=== PATIENT | female | born 1970 | race Caucasian/White ===

== ENCOUNTER 2023-05-06 15:00 | Outpatient (OUT) | payer OTHER, SELFPAY ==
--- NOTE | 2023-05-06 15:09 | XR_ITS ---
The [address] [address] Patient Name: AMISH YANEZ MRN: [id number] date: 1970 Sex: F Assigned Patient Location: [facility] Current Patient Location: [facility] Accession/Order Number: [id number] Exam Date: 05/06/2023 15:12 Report Date: 05/07/2023 00:13 At the request of: MYRA ZAMAN Procedure: XR ankle RT min 3V EXAM: XR ankle RT min 3V 05/06/2023 3:12 PM EDT OH001 CLINICAL STATEMENT: M25.571 COMPARISON: No prior studies are available at the time of dictation. TECHNIQUE: AP and lateral views of the right ankle are submitted. FINDINGS: The osseous structures are intact and in anatomic alignment. There is no acute fracture and/or dislocation. Plantar calcaneal spur. The joint spaces are preserved. Soft tissues are unremarkable. Bone mineralization is within normal limits for the patient's age. IMPRESSION: No acute fracture and/or dislocation. Plantar calcaneal spur. Electronically authenticated by: YORDY KASPER Date: 05/07/2023 00:13
== END 2023-05-06 15:01 ==
LOC: RAD 15:04
PROVIDERS: PCP Family Medicine; Visit Provider Family Medicine
DX: M25.571 Pain in right ankle and joints of right foot (principal); M77.31 Calcaneal spur, right foot
CPT/HCPCS: 73610

== ENCOUNTER 2023-06-29 14:57 | Outpatient (OUT) | payer OTHER, SELFPAY ==
--- NOTE | 2023-06-29 15:18 | XR_ITS ---
The [address] [address] Patient Name: AMISH YANEZ MRN: [id number] date: 1970 Sex: F Assigned Patient Location: [facility] Current Patient Location: Accession/Order Number: [id number] Exam Date: 06/29/2023 15:12 Report Date: 06/30/2023 09:56 At the request of: MYRA ZAMAN Procedure: XR nasal bones min 3V EXAM: XR nasal bones min 3V HISTORY: J34.89 acute facial injury one week ago; fell; bruising to right orbit and bridge of nose COMPARISON: None. TECHNIQUE: FINDINGS: Mild rightward deviation of the mid nasal septum. No fracture the nasal bones or orbital rims. XR/XR nasal bones min 3V IMPRESSION: 1. No acute bone abnormality. Electronically authenticated by: NAE HERNANDEZ Date: 06/30/2023 09:56
== END 2023-06-29 14:58 | disposition home or self-care (01) ==
LOC: RAD 14:58
PROVIDERS: PCP Family Medicine; Visit Provider Family Medicine
DX: J34.89 Other specified disorders of nose and nasal sinuses (principal)
CPT/HCPCS: 70160

== ENCOUNTER 2023-08-12 12:36 | Outpatient (OUT) | payer OTHER, SELFPAY ==
--- NOTE | 2023-08-12 12:42 | US_ITS ---
[address] [address] Patient Name: AMISH YANEZ MRN: [id number] date: 1970 Sex: F Assigned Patient Location: [facility] Current Patient Location: Accession/Order Number: [id number] Exam Date: 08/12/2023 12:50 Report Date: 08/12/2023 18:38 At the request of: NON-STAFF PHYSICIAN Procedure: US venous doppler LE RT EXAMINATION: US venous doppler LE RT HISTORY: Right Calf Pain M79.661 COMPARISON: No relevant comparison available. TECHNIQUE: A scale, color and Doppler ultrasound FINDINGS: Region: Right leg Thrombus: Echogenic thrombus identified in a gastrocnemius vein along the entire length of the catheter Flow: Absent flow corresponding to thrombus Compressibility: Absent compressibility corresponding to thrombus Augmentation: Normal proximal augmentation Other: Yaakov Yu notified by the technologist at the time of exam US/US venous doppler LE RT IMPRESSION: Occlusive deep vein thrombus identified in the gastrocnemius vein along its entire length in the calf *Exam performed in accordance with [facility] practice guidelines- Peripheral venous ultrasound, February 09, 2010. Electronically authenticated by: JB OZUNA Date: 08/12/2023 18:38
== END 2023-08-12 12:37 | disposition home or self-care (01) ==
LOC: US 12:37
PROVIDERS: PCP Family Medicine
DX: M79.661 Pain in right lower leg (principal); Z86.718 Personal history of other venous thrombosis and embolism; I82.4Z1 Acute embolism and thrombosis of unspecified deep veins of right distal lower extremity
CPT/HCPCS: 93971

== ENCOUNTER 2023-12-08 09:53 | Outpatient (OUT) | payer OTHER, SELFPAY ==
--- NOTE | 2023-12-08 | XR_ITS ---
[address] [address] Patient Name: AMISH YANEZ MRN: [id number] date: 1970 Sex: F Assigned Patient Location: [facility] Current Patient Location: [facility] Accession/Order Number: [id number] Exam Date: 12/08/2023 10:20 Report Date: 12/08/2023 11:16 At the request of: RENNY HOPPER Procedure: XR foot LT min 3V PROCEDURE: XR foot LT min 3V COMPARISON: None. HISTORY: LEFT FOOT PAIN FINDINGS: BONES:No acute fracture or dislocation. Mild enthesopathic spurring of the calcaneus at the Achilles and plantar insertions. SOFT TISSUES:Negative. No visible soft tissue swelling. EFFUSION:None visible. OTHER: Negative. XR/XR foot LT min 3V IMPRESSION: Enthesopathic spurring of the calcaneus Electronically authenticated by: JB OZUNA Date: 12/08/2023 11:16
== END 2023-12-08 09:54 | disposition home or self-care (01) ==
LOC: RAD 09:54
PROVIDERS: PCP Family Medicine; Visit Provider Podiatrist Foot & Ankle Surgery
DX: M79.672 Pain in left foot (principal); M77.32 Calcaneal spur, left foot
CPT/HCPCS: 73630

== ENCOUNTER 2023-12-14 14:03 | Outpatient (RCR) | payer OTHER, SELFPAY | END 2023-12-26 10:16 | disposition home or self-care (01) | LOC: PT 14:03 | PROVIDERS: PCP Family Medicine; Visit Provider Podiatrist Foot & Ankle Surgery | DX: M72.2 Plantar fascial fibromatosis (principal); M24.575 Contracture, left foot; M24.574 Contracture, right foot | CPT/HCPCS: 97014; 97035; 97110; 97140; 97162; G0283 ==

== ENCOUNTER 2024-04-25 12:20 | Emergency (ER) | payer OTHER, SELFPAY ==
--- OUTSIDE RECORDS SUMMARY | 2024-04-25 12:49 | XMS_ITS ---
Patient Summarization (C-CDA 2.1 CCD) Created on: April 25, 2024 Kiersten Lagos : 1970 Sex: Undifferentiated Author Organization Sample organization Care Team Providers Care Safety And Health Manager Name Role Phone AUSTYN, DR NICOLLE Lucas Admitting Unavailable ZAMAN, DR NICOLLE Lucas Attending Unavailable ZAMAN, DR NICOLLE Lucas Primary Care Unavailable ZAMAN, DR NICOLLE Lucas Consulting Unavailable ZAMAN, DR NICOLLE Lucas Admitting Unavailable ZAMAN, DR NICOLLE Lucas Attending Unavailable ZAMAN, DR NICOLLE Lucas Primary Care Unavailable ZAMAN, DR NICOLLE Lucas Consulting Unavailable ZAMAN, DR NICOLLE Lucas Admitting Unavailable ZAMAN, DR NICOLLE Lucas Attending Unavailable ZAMAN, DR NICOLLE Lucas Primary Care Unavailable ZAMAN, DR NICOLLE Lucas Consulting Unavailable FAWNICK, WHEELER Admitting Unavailable FASHAIKH CRUZ Attending Unavailable ZAMAN, DR NICOLLE Lucas Primary Care Unavailable FAWNICK, Admitting Unavailable FAWSHAIKH ROMERO Attending Unavailable ZAMAN, DR NICOLLE Lucas Primary Care Unavailable DAVID, DR PARVEZ Craig Consulting Unavailable FAWNICK, Consulting Unavailable ZAMAN, DR NICOLLE Lucas Admitting Unavailable ZAMAN, DR NICOLLE Lucas Attending Unavailable ZAMAN, DR NICOLLE Lucas Primary Care Unavailable ZAMAN, DR NICOLLE Lucas Consulting Unavailable Nicolle Zaman Unavailable LYNNE LOVE Referring Unavailable NICOLLE ZAMAN Primary Care Unavailable Nicolle Zaman MD Primary Care Provider [phone] ILA JASSO Attending UnavailTRUNG Floyd Referring Unavailable NICOLLE ZAMAN Primary Care Unavailable DEED EE FREIRE Attending Unavailable DEE DEE FREIRE Referring Unavailable ANDREEA GEIGER Attending Unavailable ANDREEA GEIGER Attending Unavailable ANDREEA GEIGER Attending Unavailable Nicolle Zaman MD Primary Care Provider [phone] MD Nicolle Zaman Primary Care Provider MD Nicolle Zaman Attending Provider [phone] DO Ching Augustine Attending Provider Ching Augustine Attending Unavailable Ching Augustine Admitting Unavailable Nicolle Zaman Primary Care Unavailable Nicolle Zaman Admitting Unavailable Nicolle Zaman Attending Unavailable Nicolle Zaman Primary Care Unavailable Allergies Allergy Classification Reported Allergen(s) Allergy Type Date of Onset Reaction(s) Facility (12 sources) Allopurinol Drug Allergy 07-31-20 14 Unknown [facility] Repository (1 source) Azithromycin Drug Allergy [facility] Repository (1 source) Erythromycin Drug Allergy [facility] Repository (12 sources) Penicillin Drug Allergy 07-11-20 13 Unknown [facility] Repository (20 sources) Azithromycin; Translations: [AZITHROMYCIN] Drug Allergy 07-03-20 23 Unknown, Unknown Reaction [facility] Repository (14 sources) Cephalexin Drug Allergy Unknown [facility] Other (19 sources) Erythromycin; Translations: [ERYTHROMYCIN] Drug Allergy 07-03-20 23 Unknown [facility] Repository (8 sources) Penicillin G Drug Allergy Unknown [facility] Other (13 sources) DULoxetine Drug Allergy 09-19-20 16 Unknown, Unknown Reaction [facility] (19 sources) Tetanus immune globulin; Translations: [TETANUS IMMUNE GLOBULIN] Drug Allergy 02-18-20 06 TETANUS IMMUNE GLOBULIN, Unknown Reaction [facility] Repository (5 sources) Substance with penicillin structure and antibacterial mechanism of action (substance) Drug allergy 02-18-20 06 Unknown [facility] Other (11 sources) Keflex *CEPHALOSPORINS* Propensity to adverse reactions 02-18-20 06 Unknown [facility] Other (5 sources) Allergies Reconciled Propensity to adverse reactions 09-30-20 21 Unknown [facility] Other (5 sources) patient allergy list reviewed by nurse or physicia Propensity to adverse reactions 06-22-20 19 Comment:Done [facility] Other (5 sources) Penicillins; Translations: [PENICILLINS] Propensity to adverse reactions to drug (disorder) 07-03-20 23 [facility] Rep[facility] (3 sources) Cephalexin; Translations: [cephalexin] Drug Allergy 02-23-20 Unknown Reaction [facility] (3 sources) Cephalosporins (Antibiotic); Translations: [Cephalosporins] Allergy to substance 02-23-20 Unknown Reaction [facility] (3 sources) erythromycin base; Translations: [erythromycin base] Allergy to substance 02-23-20 Unknown Reaction [facility] (1 source) Azithromycin Drug Allergy 04-21-20 [facility] Repository (1 source) DULoxetine Drug Allergy 04-21-20 [facility] Repository Encounters Encounter Date Encounter Type Care Provider Facility Start: 04-21-2024 Non-patient / Non-visit MD Nicolle Zaman Work Phone: Pending [facility] To [facility] Work Phone: Start: 04-21-2024 End: 04-21-2024 Admission to same day surgery center MD Nicolle Zaman Work Phone: [facility] Work Phone: Start: 04-21-2024 End: 04-21-2024 ambulatory MD Nicolle Zaman Work Phone: [facility] Work Phone: Start: 02-24-2024 End: 02-24-2024 Patient encounter procedure MD Nicolle Zaman Work Phone: [facility] Work Phone: Start: 02-24-2024 End: 02-24-2024 ambulatory MD Nicolle Zaman Work Phone: [facility] Work Phone: Start: 02-23-2024 Patient encounter status MD Nicolle Zaman Work Phone: [facility] Start: 02-23-2024 End: 02-23-2024 Encounter for general adult medical examination without abnormal findings MD Nicolle Zaman Work Phone: [facility] Start: 02-23-2024 End: 02-23-2024 Patient encounter procedure MD Nicolle Zaman Work Phone: [facility]ending [facility] To [facility] Work Phone: Start: 12-21-2023 End: 12-21-2023 ambulatory ANDREEA GEIGER Not Available Start: 12-21-2023 End: 12-21-2023 Office outpatient visit 10 minutes Andreae Geiger PA Work Phone: [facility] Comment on above: Right anterior knee pain (Primary Dx) Start: 12-16-2023 End: 12-16-2023 ambulatory ILA WHALEN [facility] Start: 12-16-2023 End: 12-16-2023 Office outpatient visit 25 minutes Ila Whalen MD Work Phone: [facility] Comment on above: Acute deep vein thro mbosis (DVT) of right lower extremity, unspecified vein (CMS-HCC) (Primary Dx); 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 Start: 12-01-2023 End: 12-01-2023 ambulatory Nicolle Zaman Other [facility] Other Start: 12-01-2023 Office outpatient visit 15 minutes Nicolle Zaman [facility] Start: 12-01-2023 End: 12-01-2023 Patient encounter procedure MD Nicolle Zaman Work Phone: [facility]ending [facility]- Start: 11-30-2023 End: 11-30-2023 ambulatory Nicolle Zaman Other [facility] Other Start: 11-30-2023 Office outpatient visit 15 minutes Nicolle Zaman [facility] Start: 11-30-2023 End: 11-30-2023 Patient encounter procedure MD Nicolle Zaman Work Phone: [facility] Work Phone: Start: 11-24-2023 End: 11-24-2023 ambulatory Nicolle Zaman Other [facility] Other Start: 11-24-2023 Office outpatient visit 15 minutes Nicolle Zaman [facility] Start: 09-28-2023 End: 09-28-2023 ambulatory ANDREEA GEIGER Not Available Start: 08-12-2023 End: 08-12-2023 ambulatory Nicolle Zaman Other [facility] Other Start: 08-12-2023 Telephone encounter Nicolle Zaman [facility] Start: 07-07-2023 End: 07-07-2023 ambulatory Nicolle Zaman Other [facility] Other Start: 07-07-2023 Telephone encounter Nicolle Zaman [facility] Start: 07-06-2023 End: 07-06-2023 ambulatory Nicolle Zaman Other [facility] Other Start: 07-06-2023 Office outpatient visit 15 minutes Nicolle Zaman [facility] Start: 07-06-2023 Telephone encounter Nicolle Zaman [facility] Start: 06-30-2023 End: 06-30-2023 ambulatory Nicolle Zaman Other [facility] Other Start: 06-30-2023 Telephone encounter Nicolle Zaman [facility] Start: 06-29-2023 End: 06-29-2023 ambulatory Nicolle Zaman Other [facility] Other Start: 06-29-2023 Office outpatient visit 15 minutes Nicolle Zaman [facility] Start: 06-04-2023 End: 06-04-2023 ambulatory Nicolle Zaman Other [facility] Other Start: 06-04-2023 Office outpatient visit 15 minutes Nicolle Zaman [facility] Start: 05-07-2023 End: 05-07-2023 ambulatory Nicolle Zaman Other [facility] Other Start: 05-07-2023 Telephone encounter Nicolle Zaman [facility] Start: 04-24-2023 End: 04-24-2023 ambulatory Nicolle Zaman Other [facility] Other Start: 04-24-2023 Office outpatient visit 15 minutes Nicolle Zaman [facility] Start: 05-07-2022 Gynecological examination normal Nicolle Zaman Other [facility] Other Start: 03-10-2022 End: 03-10-[address] NICOLLE ZAMAN Facility:[facility] Start: 09-11-2021 End: 10-08-2021 ambulatory SHAIKH MARCIANO Facility:[facility] Start: 09-04-2021 End: 09-05-2021 ambulatory SHAIKH MARCIANO Facility:[facility] Start: 07-04-2021 End: 07-05-[address] NICOLLE ZAMAN Facility:[facility] Start: 06-26-2021 End: 06-27-[address] NICOLLE ZAMAN Facility:[facility] Start: 06-21-2021 End: 06-22-[address] NICOLLE ZAMAN Facility:[facility] Goals Date Patient Goal Desired Activity /State Immunizations Immunization Date Immunization Notes Care Provider Fa cili 05-30-2022 COVID-19 Vaccine Pfi zer - Documentation Purposes Only Nicolle Zaman Other [facility] 05-25-2021 COVID-19 Vaccine Pfi zer - Documentation Purposes Only Nicolle Zaman Other [facility] 04-13-2021 COVID-19 Vaccine Pfi zer - Documentation Purposes Only Nicolle Zaman Other [facility] 09-08-2013 tetanus and diphther ia toxoids, adsorbed, preservative free, for adult use (5 Lf of tetanus toxoid and 2 Lf of diphtheria toxoid) Nicolle Zaman Other [facility] 05-12-2012 hepatitis B vaccine, adult dosage Andreea JOE Work Phone: [facility] 12-15-2011 hepatitis B vaccine, adult dosage Andreea JOE Work Phone: [facility] 11-11-2011 hepatitis B vaccine, adult dosage Andreea JOE Work Phone: [facility] Medications Current Medications Medication Drug Class(es) Dates Sig (Normalized) Sig (Original) acyclovir 400 mg oral tablet (19 sources) Herpesvirus Nucleoside Analog DNA Polymerase Inhibitor, Herpes Simplex Virus Nucleoside Analog DNA Polymerase Inhibitor, Herpes Zoster Virus Nucleoside Analog DNA Polymerase Inhibitor Start: 02-19-2024 take 400 mg by mouth once daily Acyclovir Active 400 MG PO Daily February 19, 2024 12:00am Start: 07-08-2023 acyclovir (Zov irax) 400 MG tablet take 1 tablet by rosa th every twenty-four hours Acyclovir 400 MG 1 tablet Orally daily for 90 days Active Acyclovir Active [id number] 200 actuat albuterol 0.09 mg/actuat metered dose inhaler (19 sources) beta2-Adrenergic Agonist Start: 02-19-2024 take 1 puff(s) by inhalation every four hours Albuterol Sulfate Active 2 PUFF INHALATION Every 4 hours February 19, 2024 12:00am Start: 12-15-2022 albuterol HFA 90 mcg/act inhaler Start: 12-15-2022 take 2 puff(s) by in halation every four hours Albuterol Sulfate HFA 108 (90 Base) MCG/ACT 2 puff Inhalation every 4 hrs for 30 days Nov, Active Start: 12-15-2022 take 2 puff(s) by in halation every four hours Albuterol Sulfate HFA 108 (90 Base) MCG/ACT 2 puff Inhalation every 4 hrs for 30 days Nov, Active Start: 12-15-2022 take 2 puff(s) by in halation every four hours Albuterol Sulfate HFA 108 (90 Base) MCG/ACT 2 puff Inhalation every 4 hrs for 30 days Nov, Active take 2 puff(s) by in halation every six hours as needed for wheezing albuterol (PROVENTIL HFA;VENTOLIN HFA) 90 mcg/actuation inhaler Inhale 2 puffs every 6 (six) hours as needed for wheezing. 0 Active ddeodnhq-pnyu-DO-calcium &mins (THERAGRAN-M) 9 mg iron-400 mcg tablet (1 source) ekkirfno-ybiw-TV -calcium &mins (THERAGRAN-M) 9 mg iron-400 mcg tablet Take 1 tablet by mouth in the morning. 0 Active Multivitamin (Daily Multi-Vitamin) tablet (1 source) Sta rt: 4 take 1 tablet by mouth once daily Multivitamin (Daily Multi-Vitamin) tablet Active 1 TAB PO Daily April 07, 2024 12:00am ondansetron 4 mg disintegrating oral tablet (3 sources) Serotonin-3 Receptor Antagonist Sta rt: 4 take 1 tablet by mouth three times daily as needed Ondansetron 4 MG 1 tablet on the tongue and allow to dissolve Orally tid prn for 5 Nov, Active triamcinolone acetonide 0.0005 mg/mg topical ointment (20 sources) Corticosteroid Sta rt: 3 Triamcinolone Acetonide 0.05 % 1 application Externally Twice a day for 30 days Apr, Active Start: 04-24-2023 Triamcinolone Acetonide 0.1 % 1 application Externally Twice a day for 7 days Apr, Active Completed/Discontinued Medications Medication Drug Class(es) Dates Sig (Normalized) Sig (Original) apixaban 5 mg oral tablet (10 sources) Factor Xa Inhibitor Start: 02-19-2024 End: 02-23-2024 take 5 mg by mouth twice daily Apixaban Discontinued 5 MG PO Twice daily February 19, 2024 12:00am February 23, 2024 2:23pm Start: 08-12-2023 End: 12-16-2023 take 1 tablet by mouth in the morning, then take 1 tablet by mouth at bedtime apixaban (ELIQUIS) 5 mg tablet Take 1 tablet (5 mg total) by mouth in the morning and 1 tablet (5 mg total) before bedtime. 60 tablet 0 12/16/2023 Active naproxen sodium 550 mg oral tablet (2 sources) Nonsteroidal Anti-inflammatory Drug Start: 11-03-2017 take 1 tablet by mouth every twelve hours Anaprox DS 550 MG 1 tablet Orally Twice a day for 10 days Oct, Not-Taking rivaroxaban 15 mg oral tablet (1 source) Factor Xa Inhibitor End: 12-16-2023 take 1 tablet by mouth in the morning rivaroxaban (XARELTO) 15 mg tablet Take 1 tablet (15 mg total) by mouth in the morning. 0 12/16/2023 Discontinued sulfamethoxazole 800 mg / trimethoprim 160 mg oral tablet (2 sources) Dihydrofolate Reductase Inhibitor Antibacterial, Sulfonamide Antimicrobial Start: 12-19-2022 take 1 tablet by mouth every twelve hours Bactrim DS 800-160 MG 1 tablet Orally Twice a day for 10 day(s) Dec, Not-Taking Payers Date Payer Category Payer Self-pay [id number] 2022 Private Health Insurance [facility] [employer] [id number] 2022-Present [phone] [address] [address] [place] [address] [id number] 2022 Unknown [id number] 2022 Unknown [employer] [id number] 2022-Present [phone] [address] [address] [place] [address] [id number] [id number] 1970 Unknown [id number] 2.16.840.1.040923.3.579. 2.593 1970 Unknown [id number] 2.16.840.1.333791.3.579. 2.593 1970 Unknown [id number] 2.16.840.1.209712.3.579. 2.593 1970 Unknown [id number] 2.16.840.1.075462.3.579. 2.593 1970 Unknown [id number] 2.16.840.1.655700.3.579. 2.593 1970 Unknown [id number] 2.16.840.1.523294.3.579. 2.593 1970 Unknown [id number] 2.16.840.1.428031.3.579. 2.1286 1970 Unknown [id number] 2.16.840.1.351019.3.579. 2.1286 1970 Unknown [id number] 2.16.840.1.549067.3.579. 2.1259 1970 Unknown [id number] 2.16.840.1.133014.3.579. 2.1259 1970 Unknown [id number] 2.16.840.1.187929.3.579. 2.1259 1970 Unknown [id number] 2.16.840.1.881452.3.579. 2.1259 1970 Unknown [id number] 2.16.840.1.930371.3.579. 2.1259 1959 Unknown [id number] Unknown [id number] 2.16.840.1.188239.3.579. 2.531 Unknown [id number] [id number]. 2.531 Plan of Treatment Date Care Activity Detail Author Start: 09-02-2024 Adult BMI Screening Adult BMI Screening [facility] Start: 09-02-2024 Tobacco Screening Tobacco Screening [facility] Start: 04-21-2024 [facility] Start: 02-23-2024 Patient referral [facility] Work Phone: Start: 07-17-2023 COVID-19 Vaccine ( season) COVID-19 Vaccine ( season) [facility] Start: 07-17-2023 Influenza vaccination [facility] Start: 02-20-2021 Screening for malignant neoplasm of breast Mammogram [facility] Start: 02-26-2020 Administration of varicella zoster vaccine Zoster (Shingles) Vaccine (1 of 2) [facility] Start: 02-26-2000 Screening for malignant neoplasm of cervix [facility] Start: 1991 Screening for malignant neoplasm of cervix Pap Smear [facility] Start: 1989 DTaP,Tdap and Td Vaccines (1 - Tdap) DTaP,Tdap and Td Vaccines (1 - Tdap) [facility] Start: 02-26-1988 Adult BMI Follow Up Plan Adult BMI Follow Up Plan [facility] Start: 1982 Depression Screening Depression Screening [facility] Start: 1970 Screening for malignant neoplasm of colon [facility] Comprehensive metabo lic 2000 panel - Serum or Plasma [facility] Patient Education Hemorrhoids (D C) Colon Polypectomy (DC) Know your Meds [facility] Work Phone: Patient referral [facility] Work Phone: [facility] Problems Active Problems Problem Classification Problem Date Documented Da te Episodic/Chronic Acute bronchitis (5 sources) Acute bronchitis; Translations: [Acute bronchitis due to other specified organisms] Episodic Allergic reactions (17 sources) Atopic dermatitis; Translations: [Intrinsic (allergic) eczema] Chronic Asthma (20 sources) Uncomplicated mild persistent asthma; Translations: [Mild persistent asthma, uncomplicated] Chronic Fever of unknown origin (19 sources) Fever; Translations: [Fever, unspecified] Episodic Fracture of lower limb (5 sources) Closed fracture of phalanx of foot; Translations: [Unspecified fracture of left toe(s), initial encounter for closed fracture] Episodic Headache; including migraine (20 sources) Refractory migraine with aura; Translations: [Persistent migraine aura without cerebral infarction, intractable, without status migrainosus] Chronic Lymphadenitis (20 sources) Generalized enlarged lymph nodes; Translations: [Cervical lymphadenopathy] Onset: Episodic Menopausal disorders (14 sources) Perimenopausal state; Translations: [Menopausal and female climacteric states] Chronic Nausea and vomiting (2 sources) Nausea Episodic Osteoarthritis (5 sources) Osteoarthritis; Translations: [Unspecified osteoarthritis, unspecified site] Onset: 9 Chronic Other connective tissue disease (19 sources) Lateral epicondylitis; Translations: [Lateral epicondylitis, left elbow] Episodic Other connective tissue disease (20 sources) Fibromyalgia; Translations: [Fibromyalgia] 02-19-2024 Episodic Other connective tissue disease (2 sources) Fibromyalgia Episodic Other connective tissue disease (5 sources) Pain in limb; Translations: [Pain in left toe(s)] Episodic Other connective tissue disease (1 source) Pain in left foot Episodic Other connective tissue disease (2 sources) Lateral epicondylitis of left humerus; Translations: [Lateral epicondylitis, left elbow] 02-19-2024 Episodic Other inflammatory condition of skin (5 sources) Psoriasis; Translations: [Psoriasis, unspecified] Onset: 9 Chronic Other lower respiratory disease (19 sources) Dyspnea; Translations: [Dyspnea, unspecified] Episodic Other lower respiratory disease (5 sources) Pleuritic pain; Translations: [Pleurodynia] Episodic Other non-traumatic joint disorders (1 source) Pain in right ankle and joints of right foot Episodic Other non-traumatic joint disorders (2 sources) Anterior knee pain; Translations: [Pain in right knee] 12-18-2023 Episodic Other nutritional; endocrine; and metabolic disorders (5 sources) Abnormal weight loss; Translations: [Abnormal weight loss] Episodic Other nutritional; endocrine; and metabolic disorders (5 sources) Overweight; Translations: [Overweight] Episodic Other screening for suspected conditions (not mental disorders or infectious disease) (14 sources) Mammography abnormal; Translations: [Unspecified abnormal mammogram] Onset: 9 02-23-2024 Episodic Other upper respiratory disease (2 sources) Other specified disorders of nose and nasal sinuses Episodic Other upper respiratory infections (5 sources) Chronic sinusitis; Translations: [Chronic sinusitis, unspecified] Chronic Other upper respiratory infections (14 sources) Acute pharyngitis, unspecified; Translations: [Acute pharyngitis] Onset: 8 Episodic Phlebitis; thrombophlebitis and thromboembolism (20 sources) Deep vein phlebitis and thrombophlebitis of the leg; Translations: [Phlebitis and thrombophlebitis of lower extremities, unspecified] Onset: 6 Episodic Residual codes; unclassified (2 sources) Family history of cancer of colon; Translations: [Family history of malignant neoplasm of digestive organs] 02-23-2024 Episodic Residual codes; unclassified (2 sources) Family history of malignant neoplasm of digestive organs; Translations: [Family history of malignant neoplasm of gastrointestinal tract] 02-23-2024 Episodic Spondylosis; intervertebral disc disorders; other back problems (10 sources) Pain in thoracic spine; Translations: [Pain in thoracic spine] Onset: 1 Episodic Syncope (1 source) Syncope and collapse Episodic Unclassified (4 sources) CONTACT W/AND (SUSP) EXPOS COVID-19; Translations: [CONTACT W/AND (SUSP) EXPOS COVID-19] Onset: 1 Unclassified (5 sources) Chronic ulcer; Translations: [Chronic ulcer of other specified site] Onset: 9 Unclassified (5 sources) Acute candidiasis of vulva and vagina; Translations: [Acute candidiasis of vulva and vagina] Varicose veins of lower extremity (1 source) Varicose veins of right lower extremity with pain; Translations: [Varicose veins of right lower extremity with pain] Onset: 4 Episodic Viral infection (10 sources) Herpes simplex; Translations: [Herpesviral infection, unspecified] Episodic Viral infection (5 sources) Disease caused by 2019-nCoV; Translations: [COVID-19] Past or Other Problems Problem Classification Problem Date Documented Da te Episodic/Chronic Acute and chronic tonsillitis (5 sources) Acute tonsillitis; Translations: [Acute tonsillitis, unspecified] Onset: 07-11-2013 Episodic Bacterial infection; unspecified site (5 sources) Bacterial infectious disease; Translations: [Bacterial infection, unspecified, in conditions classified elsewhere and of unspecified site] Onset: 06-15-2017 Episodic Malaise and fatigue (5 sources) Fatigue; Translations: [Other fatigue] Onset: 08-19-2013 Episodic Other circulatory disease (5 sources) Orthostatic hypotension; Translations: [Orthostatic hypotension] Onset: 01-12-2014 Episodic Other connective tissue disease (5 sources) Pain in left lower limb; Translations: [Pain in left leg] Onset: 11-11-2017 Episodic Other diseases of veins and lymphatics (5 sources) Peripheral venous insufficiency; Translations: [Unspecified venous (peripheral) insufficiency] Onset: 06-15-2017 Episodic Other ear and sense organ disorders (5 sources) Impacted cerumen; Translations: [Impacted cerumen] Onset: 04-20-2019 Episodic Other infections; including parasitic (5 sources) Pediculosis capitis; Translations: [Pediculosis due to Pediculus humanus capitis] Onset: 04-24-2016 Episodic Other lower respiratory disease (4 sources) Pleurodynia; Translations: [PLEURODYNIA] Onset: 09-04-2021 Episodic Other lower respiratory disease (1 source) Dyspnea, unspecified; Translations: [DYSPNEA UNSPECIFIED] Onset: 07-07-2021 Episodic Other non-traumatic joint disorders (5 sources) Arthralgia of the lower leg; Translations: [Pain in joint, lower leg] Onset: 01-27-2018 Episodic Other non-traumatic joint disorders (5 sources) Arthralgia of the ankle and/or foot; Translations: [Pain in joint, ankle and foot] Onset: 01-04-2019 Episodic Other skin disorders (5 sources) Eruption; Translations: [Rash and other nonspecific skin eruption] Onset: 02-10-2014 Episodic Other upper respiratory disease (5 sources) Dysphonia; Translations: [Dysphonia] Onset: 01-12-2014 Episodic Poisoning by nonmedicinal substances (5 sources) Toxic effect of venom of other spider, accidental (unintentional), initial encounter; Translations: [Toxic effect of venom of other spider, accidental (unintentional), initial encounter] Onset: 06-15-2017 Episodic Residual codes; unclassified (5 sources) Requires influenza virus vaccination; Translations: [Need for prophylactic vaccination and inoculation, Influenza] Onset: 09-08-2013 Episodic Residual codes; unclassified (5 sources) C/O - a back symptom; Translations: [Other symptoms referable to back] Onset: 06-11-2018 Episodic Unclassified (1 source) CONTACT W/AND (SUSP) EXPOS COVID-19; Translations: [CONTACT W/AND (SUSP) EXPOS COVID-19] Onset: 03-10-2022 Unclassified (14 sources) Vagina, candidiasis; Translations: [Vagina, candidiasis] Unclassified (19 sources) History of disease caused by Severe acute respiratory syndrome coronavirus 2 (situation); Translations: [Personal history of COVID-19] Procedures Date Procedure Procedure Detail Performing Clinician Start: 04-21-2024 Screening colonoscopy M Aditya Zaman Work Phone: Start: 02-24-2024 Screening mammograph y of bilateral breasts MD Nicolle Zaman Work Phone: Start: 02-21-2020 Mammography Andreea JOE Work Phone: Start: 06-11-2018 General examination of patient Nicolle Austyn Other Start: 03-27-2017 Screening mammography Jm nash Zaman Other Start: 12-17-2007 Contraception care education Nicolle Zaman Other Start: 06-04-2006 visit Nicolle Austyn Other Results Test Name Value Interpretation Reference Range Facil ity HCG ( test) IA.rapi d Ql (U)Ordered By: Ching Augustine on 04-21-2024 HCG ( test) Ql (U) Negative [facility] HCG,Urineon 04-21-2024 Beta HCG ( test) Ql (U) Negative Normal [facility] Comment on above: Result Comment: PERF ORMED BY: [place] [address] PATHOLOGIST ASSISTANT TECHNICIAN CARLOS ALBERTO BAEZ M.D. Performed By: #### U HCG #### [address] Dirk 04-21-2024 L Specimen: [id number] Received: 04/21/248 Status: RYAN Sorensen Num: [id number] Spec Type: Surgical Subm Dr: Ching Augustine, DO Tissues: A Colon Biopsy (CECAL POLYP) B Colon Biopsy (TRANSV POLYP) Procedures: HE/4, Gross/Micro L4/2 Age/ Patient Sex Location Account Attending Physician YandelmargaretKiersten ashford 54/F [id number] Ching Augustine DO SPEC NUM: [id number] RECD: 04/21/24 STATUS: RYAN JANIA NUM: [id number] USHA: 04/21/24- SUBM DR: Ching Augustine DO ENTERED: 04/21/[address] [facility] [address]: SPEC TYPE: Surgical DEPT: S ORDERED: HE/4, Gross/Micro L4/2 ORDERED: HE/4, Gross/Micro L4/2 Pathological Diagnosis A, cecal polyp biopsy: -Small tubular adenomatous polyp B: Transverse colon polyps biopsies: -Tubular adenoma(s) in at least 3 fragments -Small adenomatous polyp in the fourth fragment Clinical Information Screening Gross Description Received are 2 formalin filled containers each labeled with the patient's name, date of and specific specimen site. A. Further labeled cecal polyp is a 0.2 x 0.2 x 0.1 cm hutson polypoid tissue fragment, entirely submitted in A1. B. Further labeled transverse colon polyp are 4 hutson polypoid tissue fragments ranging from 0.3 x 0.8 x 0.2 cm to 0.2 x 0.2 x 0.1 cm, entirely submitted in B1. -------- Specimen: [id number] Received: 04/21/24 Status: KATHERINEStewart Sorensen Num: [id number] Spec Type: Surgical Subm Dr: Ching Augustine DO Tissues: A Colon Biopsy (CECAL POLYP) B Colon Biopsy (TRANSV POLYP) Procedures: HE/4, Gross/Micro L4/2 -------- Patient: DemondKiersten [id number] (Continued) -------- Specimen: [id number] Received: 04/21/24 (Continued) Gross Description (Continued) Signed (signature on file) Rosa Rosario MD 04/23/24 1315 -------- Specimen: [id number] Received: 04/21/24 Status: RYAN Sorensen Num: [id number] Spec Type: Surgical Subm Dr: Ching Augustine DO Tissues: A Colon Biopsy (CECAL POLYP) B Colon Biopsy (TRANSV POLYP) Procedures: David HALLMAN/Nakia L4/2 -------- Patient: Kiersten Lagos [id number] (Continued) -------- Specimen: [id number] Received: 04/21/24 (Continued) Gross Description (Continued) TW CPT Codes 53695O5 -------- -------- Specimen: [id number] Received: 04/21/24 Status: RYAN Sorensen Num: [id number] Spec Type: Surgical Subm Dr: Ching Augustine DO Tissues: A Colon Biopsy (CECAL POLYP) B Colon Biopsy (TRANSV POLYP) Procedures: David HALLMAN/Nakia L4/2 -------- Patient: Kiersten Lagos [id number] (Continued) -------- Signed (signature on file) Rosa Rosario MD 04/23/24 1315 Normal [facility] MM screening mammo BI w/CADo n 02-24-2024 MM screening mammo BI w/CAD [facility] [place] [address] Mammography Report Signed Patient: Kiersten Lagos MR#: [id number] : 1970 Acct:[id number] Age/Sex: 53 / F ADM Date: 02/24/24 Loc: [place] Room: Type: [facility] Attending Dr: Nicolle Zaman MD Copies to: Nicolle Zaman MD Ordering Provider: Nicolle Zaman MD Date of Service: 02/24/24 MM/MM screening mammo BI w/CAD: Z12.31 - Encounter for screening mammogram for malignant ... CLINICAL DATA: Screening for malignancy. SCREENING MAMMOGRAM - FULL FIELD DIGITAL WITH TOMOSYNTHESIS AND CAD COMPARISON:Mammograms dating back to 2010. Tomosynthesis craniocaudal and mediolateral oblique views of both breasts were obtained using low- dose digital technique. This examination was reviewed with the aid of CAD. FINDINGS: The breast parenchyma is heterogeneously dense. Previously identified architectural distortion seen within the upper outer quadrant of the right breast is once again demonstrated with adjacent biopsy clip noted. This was previously evaluated in 2020. This appears similar to the 2021 study. No new masses or evidence of suspicious microcalcifications. MM/MM screening mammo BI w/CAD IMPRESSION: NO MAMMOGRAPHIC EVIDENCE OF MALIGNANCY. ARCHITECTURAL DISTORTION SEEN WITHIN THE UPPER OUTER QUADRANT OF THE RIGHT BREAST WITH ADJACENT BIOPSY CLIP. THIS APPEARS GROSSLY UNCHANGED FROM THE 2021 STUDY. ROUTINE FOLLOW-UP IS RECOMMENDED IN ONE YEAR. RESULT CODE: 2 Benign Findings(s) DENSITY CODE: 3 (approximately 51-75% glandular) FOLLOW UP: 1YR The false-negative rate of mammography is approximately 10-percent. Management of a palpable abnormality must be based on clinical grounds. Patient was entered into a reminder system with a target due date for the next mammogram. Impression dictated by: Saman Douglass Jr., Seth02/24/2024 12:45 PM Dictation Location: [facility] Transcribed By: PJ 02/24/24 1245 Dictated By: Saman Douglass Jr, DO 02/24/24 1240 Signed By: 02/24/24 1245 Normal [facility] XR KNEE 3 VIEWS RIGHTon 11-16 XR KNEE 3 VIEWS RIGHT EXAM: XR KNEE 3 VIEWS RIGHT HISTORY: fall, hx fracture. TECHNIQUE: 3 views of the knee obtained. COMPARISON: Radiographs September 07, 2023 FINDINGS: No acute fracture or dislocation. Chronic deformity of the proximal fibula. Joint spaces of the knee are maintained. No knee joint effusion. Soft tissues are within normal limits. IMPRESSION: No acute osseous abnormality. ELECTRONICALLY SIGNED BY: Luc Rivera, DO Normal Not Available Comment on above: Order Comment: ADD S [facility] Covid-19 PCR (CVDTBH)on 02-15 SARS-CoV-2 (COVID-19) RNA MADAY+probe Ql (Unsp spec) Not detected Normal NOT DETECTED [facility] Comment on above: Result Comment: This test is not yet approved or cleared by the [place] FDA. When there are no FDA-approved or cleared tests available, and other criteria are met, FDA can make tests available under an emergency access mechanism called an Emergency Use Authorization (EUA). The EUA for this test is supported by the [place] Mistress of Health and Human Service's (HHS's) declaration that circumstances exist to justify the emergency use of in vitro diagnostics for the detection and/or diagnosis of the virus that causes COVID-19. This EUA will remain in effect (meaning this test can be used) for the duration of the COVID-19 declaration justifying emergency of IVDs, unless it is terminated or revoked by FDA (after which the test may no longer be used). When diagnostic testing is negative, the possibility of a false negative should be considered in the context of a patient's recent exposures and the presence of clinical signs and symptoms consistent with SARS-CoV-2. Performed By: #### C VDTBH #### [facility] [address] [address] [address] Devin Rosario XR RIBS RT PA Sylvia XR RIBS RT PA CH EXAMINATION: XR RIBS RT PA CH HISTORY: Pleuritic pain ; mid thoracic and posterior right rib pain after falling COMPARISON: No relevant comparison available. FINDINGS: LUNGS: No significant pulmonary parenchymal abnormalities. PLEURA: No pneumothorax, effusion, or pleural thickening. MEDIASTINUM: No visible mass or adenopathy. CARDIAC: No cardiomegaly or cardiac silhouette abnormality. RIBS: Normal. No significant arthropathy or acute abnormality. OTHER: Negative. IMPRESSION: 1. No acute cardiac pulmonary process. 2. No visible rib fracture. Electronically authenticated by: PARVEZ HERNANDEZ Date: 2021-09-05 07:17 Normal [facility] XR TSPINE 3 VIEWSon 09-05-20 XR TSPINE 3 VIEWS EXAMINATION: XR TSPINE 3 VIEWS HISTORY: Pain in thoracic spine ; mid thoracic spine and posterior right rib pain after falling COMPARISON: No relevant comparison available. FINDINGS: BONES: Moderate curvature of the thoracolumbar spine. No fracture, spondylolisthesis, bone lesion. DISC SPACES: No significant disc height narrowing, subluxation, or endplate abnormality. PARASPINOUS: Negative. No paraspinous abnormality is seen. OTHER: Negative. IMPRESSION: 1. No acute bone abnormality. 2. Mild scoliotic curvature. Electronically authenticated by: PARVEZ HERNANDEZ Date: 2021-09-05 07:14 Normal [facility] CARMELA-SCHNEIDER VIRUS (EBV) AB PROFILEon 07-05-2021 EBV Ab VCA, IgG >600.0 Critically high 0.0-17.9 [facility] Comment on above: Result Comment: Nega tive <18.0 Equivocal 18.0 - 21.9 Positive >21.9 Performed By: #### E BVPROF #### [facility] [address] [place], [place] [address] Nir Hernandez EBV Ab VCA, IgM <36.0 Normal 0.0-35.9 [facility] Comment on above: Result Comment: Nega tive <36.0 Equivocal 36.0 - 43.9 Positive >43.9 Performed By: #### E BVPROF #### [facility] [address] [id number] Nir Mary EBV Nuclear Antigen Ab, IgG 364.0 U/mL Critically high 0.0-17.[address] [facility] Comment on above: Result Comment: Nega tive <18.0 Equivocal 18.0 - 21.9 Positive >21.9 Performed By: #### E BVPROF #### [facility] [address] [address] Nirtao [place] Interpretation: Comment Normal [facility] Comment on above: Result Comment: EBV Interpretation Chart Rodriguez: Antibody Present + Antibody Absent - Interpretation VCA-IgM VCA-IgG EBNA-IgG . No previous infection/ - - - Susceptible Primary infection (new + + - or recent) Past Infection +or- + + See comment below* + - - *Results indicate infection with EBV at some time however cannot predict the timing of the infection since antibodies to EBNA usually develop after primary infection or, alternatively, approximately 5-10% of patients with EBV never develop antibodies to EBNA. Performed By: #### E BVPROF #### [facility] [address] [place], [place] [address] Nir Mary CBC AUTO DIFFon 07-04-2021 BASO # 0.0 103/ul Normal 0.0-0.[address] [facility] Comment on above: Performed By: #### C BC #### [facility] [address] [place], [place] [address] Nir Mary Basophils/100 WBC (Bld) 0.7 % Normal 0.2-2.[address] [facility] Comment on above: Performed By: #### C BC #### [facility] [address] [place], [place] [address] Nir Mary EO # 0.0 103/ul Normal 0.0-0.7 [facility] Comment on above: Performed By: #### C BC #### [facility] [address] [place] [address] Nir Mary Eosinophils/100 WBC (Bld) 0.7 % Critically low 0.9-7.[address] [facility] Comment on above: Performed By: #### C BC #### [facility] [address] [place], [place] [address] Nir Mary Erythrocyte distribution width (RBC) [Ratio] 13.0 % Normal 11.0-15.[address] [facility] Comment on above: Performed By: #### C BC #### [facility] [address] [place], [place] [address] Nir Mary Hematocrit (Bld) [Volume fraction] 39.1 % Normal 36.0-48.[address] [facility] Comment on above: Performed By: #### C BC #### [facility] [address] [place], [place] [address] Nir Mary Hemoglobin (Bld) [Mass/Vol] 12.7 g/dL Normal 12.0-16.[address] [facility] Comment on above: Performed By: #### C BC #### [facility] [address] [place] [address] Nir Mary IG # 0.02 10e3/ul Normal 0.00-0.[address] [facility] Comment on above: Performed By: #### C BC #### [facility] [address] [place] [address] Nir Mary IG % 0.4 % Normal 0.0-0.[address] [facility] Comment on above: Performed By: #### C BC #### [facility] [address] [place] [address] Nir Mary LYMPH # 2.1 103/ul Normal 1.2-3.[address] [facility] Comment on above: Performed By: #### C BC #### [facility] [address] [place], [place] [address] Nir Mary Lymphocytes/100 WBC (Bld) 38.3 % Normal 20.5-60.[address] [facility] Comment on above: Performed By: #### C BC #### [facility] [address] [place], [place] [address] Nirtao [place] MANUAL DIFF REQ NO Normal [facility] Comment on above: Performed By: #### C BC #### [facility] [address] [id number] Nir Hernandez MCH (RBC) [Entitic mass] 30.8 pg Normal 26.7-34.0 [facility] Comment on above: Performed By: #### C BC #### [facility] [address] [id number] Nir Hernandez MCHC (RBC) [Mass/Vol] 32.5 g/dL Normal 29.9-35.2 [facility] Comment on above: Performed By: #### C BC #### [facility] [address] [id number] Nir Hernandez MCV (RBC) [Entitic vol] 94.7 fL Normal 81.0-99.0 [facility] Comment on above: Performed By: #### C BC #### [facility] [address] [place] [address] Nir Hernandez MONO # 0.3 103/ul Normal 0.3-0.8 [facility] Comment on above: Performed By: #### C BC #### [facility] [address] [place], [place] [address] Nir Hernandez Monocytes/100 WBC (Bld) 6.0 % Normal 1.7-12.0 [facility] Comment on above: Performed By: #### C BC #### [facility] [address] [place], [place] [address] Nir Hernandez NEUT # 3.0 103/ul Normal 1.4-6.5 [facility] Comment on above: Performed By: #### C BC #### [facility] [address] [place], [place] [address] Nir Hernandez Neutrophils/100 WBC (Bld) 53.9 % Normal 43.0-75.0 [facility] Comment on above: Performed By: #### C BC #### [facility] [address] [place], [place] [address] Nirtao Hernandez Platelet mean volume (Bld) [Entitic vol] 10.9 fL Normal 9.5-13.5 [facility] Comment on above: Performed By: #### C BC #### [facility] [address] [address] Nir Hernandez PLT 178 103/ul Normal 150-450 [facility] Comment on above: Performed By: #### C BC #### [facility] [address] [id number] Nir Hernandez RBC 4.13 106/ul Critically low 4.20-5.40 [facility] Comment on above: Performed By: #### C BC #### [facility] [address] [id number] Nir Hernandez WBC 5.5 103/ul Normal 4.0-11.[address] [facility] Comment on above: Performed By: #### C BC #### [facility] [address] [place] [address] Nir Hernandez CULTURE THROATon 06-26-2021 CULTURE THROAT Culture Observations : NORMAL RESPIRATORY HUSAM. Normal [facility] Comment on above: Performed By: #### T HRTCX, SSCRN #### [facility] [address] [place], [place] [address] Nir Hernandez Covid-19 PCR (CVDTBH)on 06-16 SARS-CoV-2 (COVID-19) RNA MADAY+probe Ql (Unsp spec) Not detected Normal NOT DETECTED [facility] Comment on above: Result Comment: This test is not yet approved or cleared by the [place] FDA. When there are no FDA-approved or cleared tests available, and other criteria are met, FDA can make tests available under an emergency access mechanism called an Emergency Use Authorization (EUA). The EUA for this test is supported by the [place] of Health and Human Service's (HHS's) declaration that circumstances exist to justify the emergency use of in vitro diagnostics for the detection and/or diagnosis of the virus that causes COVID-19. This EUA will remain in effect (meaning this test can be used) for the duration of the COVID-19 declaration justifying emergency of IVDs, unless it is terminated or revoked by FDA (after which the test may no longer be used). When diagnostic testing is negative, the possibility of a false negative should be considered in the context of a patient's recent exposures and the presence of clinical signs and symptoms consistent with SARS-CoV-2. Performed By: #### C VDTBH, CVDAGS #### [facility] [address] [place] [address] Nir Hernandez STREPT SCREENon 06-26-2021 STREP SCREEN A Negative Normal NEGATIVE [facility] Comment on above: Performed By: #### T HRTCX, SSCRN #### [facility] [address] [place] [address] Nir Hernandez SYMPTOMATIC COVID-19 ANTIGEN on 06-26-2021 EUA Statement SEE BELOW Normal [facility] Comment on above: Result Comment: This test has not been FDA cleared or approved, but has been authorized by the FDA under an Emergency Use Authorization (EUA) for use by authorized laboratories certified under CLIA that meet the requirements to perform moderate or high complexity testing. This test has been authorized only for the detection of proteins from SARS-CoV-2, not for any other viruses or pathogens. The emergency use of this test is authorized for the duration of the declaration that circumstances exist justifying the authorization of emergency use of in vitro diagnostic tests for detection and/or diagnosis of Covid-19 under section 564(b)(1) of the Act, 21 U.S.C. 360bbb-3(b)(1), unless the declaration is terminated or authorization is revoked sooner. Performed By: #### C VDTBH, CVDAGS #### [facility] [address] [place] [address] Nir Hernandez SARS-CoV-2 (COVID-19) RNA MADAY+probe Ql (Unsp spec) Negative Normal NEGATIVE [facility] Comment on above: Result Comment: CONF IRMATION BY PCR PENDING PER CDC GUIDELINES/ SYMPTOMATIC PATIENT. Performed By: #### C VDTBH, CVDAGS #### [facility] [address] [place] [address] Nir Hernandez [facility]on SARS-CoV-2 (COVID-19) RNA AMDAY+probe Ql (Unsp spec) Not detected Normal NOT DETECTED [facility] Comment on above: Result Comment: This test is not yet approved or cleared by the [place] FDA. When there are no FDA-approved or cleared tests available, and other criteria are met, FDA can make tests available under an emergency access mechanism called an Emergency Use Authorization (EUA). The EUA for this test is supported by the [place] of Health and Human Service's (HHS's) declaration that circumstances exist to justify the emergency use of in vitro diagnostics for the detection and/or diagnosis of the virus that causes COVID-19. This EUA will remain in effect (meaning this test can be used) for the duration of the COVID-19 declaration justifying emergency of IVDs, unless it is terminated or revoked by FDA (after which the test may no longer be used). When diagnostic testing is negative, the possibility of a false negative should be considered in the context of a patient's recent exposures and the presence of clinical signs and symptoms consistent with SARS-CoV-2. Performed By: #### T HRTCX, SSCRN #### [facility] [address] [address] Nir Hernandez SYMPTOMATIC COVID-19 ANTIGEN on 06-21-2021 EUA Statement SEE BELOW Normal [facility] Comment on above: Result Comment: This test has not been FDA cleared or approved, but has been authorized by the FDA under an Emergency Use Authorization (EUA) for use by authorized laboratories certified under CLIA that meet the requirements to perform moderate or high complexity testing. This test has been authorized only for the detection of proteins from SARS-CoV-2, not for any other viruses or pathogens. The emergency use of this test is authorized for the duration of the declaration that circumstances exist justifying the authorization of emergency use of in vitro diagnostic tests for detection and/or diagnosis of Covid-19 under section 564(b)(1) of the Act, 21 U.S.C. 360bbb-3(b)(1), unless the declaration is terminated or authorization is revoked sooner. Performed By: #### C VDAGS, CVDTBH #### [facility] [address] [place] [address] Nir Hernandez SARS-CoV-2 (COVID-19) RNA MADAY+probe Ql (Unsp spec) Negative Normal NEGATIVE [facility] Comment on above: Result Comment: CONF IRMATION BY PCR PENDING PER CDC GUIDELINES/ SYMPTOMATIC PATIENT. Performed By: #### C VDAGS, CVDTB #### [facility] [address] [address] Nir Hernandez Social History Date Type Detail Facility Start: 12-21-2023 Alcohol intake Current drinke r of alcohol (finding) [facility] Start: 12-16-2023 End: 12-21-2023 Sex Assigned At [facility] Start: 12-16-2023 Alcohol intake Ex-drinker (finding) [facility] Start: 12-16-2023 End: 12-21-2023 History of Social function [facility] Start: 12-14-2023 End: 04-21-2024 Tobacco smoking status IDIS Never smoked tobacco (finding) [facility] Start: 07-03-2023 End: 09-02-2023 Tobacco smoking status [facility] Ex-smoker [facility] Start: 07-03-2023 End: 09-02-2023 Tobacco use and exposure Smokeless tobacco non-user [facility] Start: 07-27-2023 Alcohol Comment 1-2 drinks, mo nthly or less. caffeine intake: 1-2 cups per day.1-2 drinks, monthly or less. caffeine intake: 1-2 cups per day. [facility] Start: 1970 Sex Assigned At Not on file [facility] Start: 1970 Sex Assigned At Female F [facility] Unknown if ever smoked [facility] Other End: 11-16-1997 History of tobacco use Current smoker [facility] End: 11-16-1997 History of tobacco use Cigarette Smoker [facility] Childcare Unknown [facility] Vital Signs Date Time Vital Sign Value Performing Clinician Facility 04-21-2024 09:10-0400 Diastolic blood pressure 70 mm[Hg] MD Nicolle Zaman Work Phone: [facility] 04-21-2024 09:10-0400 Heart rate 60 /min MD Nicolle Zaman Work Phone: [facility] 04-21-2024 09:10-0400 Respiratory rate 16 /min MD Nicolle Zaman Work Phone: [facility] 04-21-2024 09:10-0400 SaO2% (BldA) [Mass fraction] 100 % MD Nicolle Zaman Work Phone: [facility] 04-21-2024 09:10-0400 Systolic blood pressure 122 mm[Hg] MD Nicolle Zaman Work Phone: [facility] 04-21-2024 07:47-0400 Body height 172.72 cm MD Nicolle Zaman Work Phone: [facility] 04-21-2024 07:47-0400 Body weight 83.46 kg MD Nicolle Zaman Work Phone: [facility] 02-23-2024 14:15-0400 Body height 172.72 cm MD Nicolle Zaman Work Phone: [facility] 02-23-2024 14:15-0400 Body mass index (BMI) [Ratio] 27.8 kg/m2 MD Nicolle Zaman Work Phone: [facility] 02-23-2024 14:15-0400 Body weight 83.23 kg MD Nicolle Zaman Work Phone: [facility] 02-23-2024 14:15-0400 Diastolic blood pressure 68 mm[Hg] MD Nicolle Zaman Work Phone: [facility] 02-23-2024 14:15-0400 Heart rate 102 /min MD Nicolle Zaman Work Phone: [facility] 02-23-2024 14:15-0400 Systolic blood pressure 103 mm[Hg] MD Nicolle Zaman Work Phone: [facility] 12-16-2023 15:54-0500 Diastolic blood pressure 78 mm[Hg] Ila Whalen MD Work Phone: [facility] 12-16-2023 15:54-0500 Systolic blood pressure 118 mm[Hg] Ila Whalen MD Work Phone: [facility] 12-16-2023 15:50-0500 Body height 172.7 cm Ila Whalen MD Work Phone: [facility] [employer] 12-16-2023 15:50-0500 Body mass index (BMI) [Ratio] 28.14 kg/m2 Ila Whalen MD Work Phone: [facility] 12-16-2023 15:50-0500 Body weight 83.92 kg Ila Whalen MD Work Phone: [facility] 12-11-2023 10:00-0500 Body height 172.72 cm Nicolle Zaman Other [facility] 12-11-2023 10:00-0500 Body mass index (BMI) [Ratio] 27.52 kg/m2 Nicolle Zaman Other [facility] Other 12-11-2023 10:00-0500 Body weight 82.1 kg Nicolle Zaman Other [facility] 12-11-2023 10:00-0500 Diastolic blood pressure 77 mm[Hg] Nicolle Zaman Other [facility] 12-11-2023 10:00-0500 Systolic blood pressure 117 mm[Hg] Nicolle Zaman Other [facility] 12-01-2023 10:45-0500 Body height 172.72 cm Nicolle Zaman Other [facility] 12-01-2023 10:45-0500 Body mass index (BMI) [Ratio] 27.37 kg/m2 Nicolle Zaman Other [facility] Other 12-01-2023 10:45-0500 Body weight 81.65 kg Nicolle Zaman Other [facility] Other 12-01-2023 10:45-0500 Body weight 81.64 kg MD Nicolle Zaman Work Phone: [facility] 12-01-2023 10:45-0500 Diastolic blood pressure 76 mm[Hg] Nicolle Zaman Other [facility] 12-01-2023 10:45-0500 Systolic blood pressure 116 mm[Hg] Nicolle Zaman Other [facility] 11-30-2023 10:30-0500 Body height 172.72 cm Nicolle Zaman Other [facility] 11-30-2023 10:30-0500 Body mass index (BMI) [Ratio] 27.52 kg/m2 Nicolle Zaman Other [facility] Other 11-30-2023 10:30-0500 Body weight 82.1 kg Nicolle Zaman Other [facility] 11-30-2023 10:30-0500 Diastolic blood pressure 74 mm[Hg] Nicolle Zaman Other [facility] 11-30-2023 10:30-0500 Systolic blood pressure 115 mm[Hg] Nicolle Zaman Other [facility] 11-24-2023 13:45-0500 Body height 172.72 cm Nicolle Zaman Other [facility] Other 11-24-2023 13:45-0500 Body mass index (BMI) [Ratio] 27.34 kg/m2 Nicolle Zaman Other [facility] Other 11-24-2023 13:45-0500 Body weight 81.56 kg Nicolle Zaman Other [facility] Other 11-24-2023 13:45-0500 Diastolic blood pressure 75 mm[Hg] Nicolle Zaman Other [facility] Other 11-24-2023 13:45-0500 Systolic blood pressure 113 mm[Hg] Nicolle Zaman Other [facility] Other 07-06-2023 14:45-0400 Body height 172.72 cm Nicolle Zaman Other [facility] Other 07-06-2023 14:45-0400 Body mass index (BMI) [Ratio] 27.37 kg/m2 Nicolle Zaman Other [facility] Other 07-06-2023 14:45-0400 Body weight 81.65 kg Nicolle Zaman Other [facility] Other 07-06-2023 14:45-0400 Diastolic blood pressure 73 mm[Hg] Nicolle Zaman Other [facility] Other 07-06-2023 14:45-0400 Systolic blood pressure 113 mm[Hg] Nicolle Zaman Other [facility] Other 06-29-2023 13:30-0400 Body height 172.72 cm Nicolle Zaman Other [facility] Other 06-29-2023 13:30-0400 Body mass index (BMI) [Ratio] 27.82 kg/m2 Nicolle Zaman Other [facility] Other 06-29-2023 13:30-0400 Body weight 83.01 kg Nicolle Zaman Other [facility] Other 06-29-2023 13:30-0400 Diastolic blood pressure 73 mm[Hg] Nicolle Zaman Other [facility] Other 06-29-2023 13:30-0400 Systolic blood pressure 115 mm[Hg] Nicolle Zaman Other [facility] Other 06-04-2023 08:45-0400 Body height 172.72 cm Nicolle Zaman Other [facility] Other 06-04-2023 08:45-0400 Body mass index (BMI) [Ratio] 28.43 kg/m2 Nicolle Zaman Other [facility] Other 06-04-2023 08:45-0400 Body weight 84.82 kg Nicolle Zaman Other [facility] Other 06-04-2023 08:45-0400 Diastolic blood pressure 67 mm[Hg] Nicolle Zaman Other [facility] Other 06-04-2023 08:45-0400 SaO2% (BldA) [Mass fraction] 98 % Nicolle Zaman Other [facility] Other 06-04-2023 08:45-0400 Systolic blood pressure 110 mm[Hg] Nicolle Zaman Other [facility] Other 04-24-2023 11:30-0400 Body height 172.72 cm Nicolle Zaman Other [facility] Other 04-24-2023 11:30-0400 Body mass index (BMI) [Ratio] 28.58 kg/m2 Nicolle Zaman Other [facility] Other 04-24-2023 11:30-0400 Body weight 85.28 kg Nicolle Zaman Other [facility] Other 04-24-2023 11:30-0400 Diastolic blood pressure 70 mm[Hg] Nicolle Zaman Other [facility] Other 04-24-2023 11:30-0400 Systolic blood pressure 110 mm[Hg] Nicolle Zaman Other [facility] Other Clinical Notes 04-24-2023 to 04-21-2024 Note Date & Type Note Facility 04-21-2024 History and physi kassi note Note Date/Time April 21, 2024 7:36a m [facility] [address] [place] [address] Gastroenterology H&P Signed Patient: Kiersten Lagos MR#: [id number] : 1970 Acct:[id number] Age/Sex: 54 / F Adm Date: 4 Loc: Room: Type: [facility] Attending Dr: Ching Augustine DO Copies to: DO Nicolle Turcios MD~ Date of Service: 04/21/2024 HISTORY & PHYSICAL: Patient's history with special attention to the cardiovascular, pulmonary systems and the current problem was reviewed with the patient immediately prior to the procedure. Present medications and doses reviewed in the EMR. Allergies and pertinent laboratory tests were also reviewedat this time in the EMR. The physical examination, as below, was then performed. Indication, assessment and HPI: Patient is a 54-year-old female who presents forcolonoscopy for family history of colon cancer in her father diagnosed in his early 60s. No prior colonoscopy. Family history of GI malignancy? family hx of colon cancer in her father PHYSICAL EXAMINATION General appearance: cooperative, NAD Skin: No jaundice, no rash or lesions Head: NCAT Eyes: Anicteric Neck: Supple Lungs: Normal respiratory effort, no use of accessory muscles Abdomen: Soft, nondistended Neuro: No focal deficits, Ox3. REVIEW OF SYSTEMS Constitutional: Denies malaise, fevers Cardiovascular: Denies chest pain, palpitations Respiratory: Denies shortness of breath, wheezing Gastrointestinal: As per HPI Genitourinary: Denies dysuria, polyuria Musculoskeletal: Denies joint swelling, joint stiffness Neurological: Denies confusion, numbness, tingling Endocrine: Denies fatigue Written informed consent obtained from the patient. Risks (including but not limited to perforation, infection, bloating, bleeding, need for emergent surgeryand loss of life), benefits and alternatives explained and questions answered. The patient verbalized understanding. Based on history patient is an appropriate candidate for the procedure. Ching Augustine DO Documented By: Ching Augustine DO 04/21/24 0735 Signed By: <Electronically signed by Ching Augustine DO> 04/21/24 0811 [facility] Work Phone: 1(635) 246-520506-06-2024 [facility] History of Present illness Narrative* HEATH Mcneil - 12/21/2023 8:30 AM EST Images from the original note were not included. HISTORY OF PRESENT ILLNESS: EST PT Kiersten Lagos is an 53 y.o. @ female. EST PT WITH FLARE UP RT KNEE PAIN- S/P RT KNEE FX 07/10/23 (~5MO) -NOTES GOOD IMPROVEMENT - PT STATES SHE ALMOST CX APPT TODAY BUT STATES SHE DID HAVE SOME DISCOMFORT AT WORK LAST NIGHT DVT 08/12/23- PT ON ELIQUIS 5MG BID- PER PT SHE WILL BE ON ELIQUIS 1 MORE MONTH XRAY RT KNEE CHANGE 12/04/23 (CHANGE; NASEEM COOK) XRAY RT KNEE CHANGE 09/07/23 XRAY RT KNEE CHANGE 08/21/23 XRAY RT KNEE CHANGE 07/27/23 XRAY RT KNEE 07/10/23 CHANGE PREDNISONE 09/07/23 NOTES SOME DISCOMFORT BELOW PATELLA- +SWELLING LOWER LEG- +TYLENOL - DENIES INSTABILITY TORI (MOST RECENT INJURY)- PT SLIPPED ON ICE 12/04/23 TORI: PT STATES SHE CAUGHT HER FOOT ON SOMETHING WHILE WALKING IN A PARKING LOT AND FELL (07/10/23) HX DVT RT LE 2005 PT STATES SHE ALSO HAD DVT LT LE ~2017 ALLERGIES: Allergies Allergen Reactions Erythromycin Penicillins Tetanus Immune Globulin Zithromax [Azithromycin] HOME MEDICATIONS: Current Outpatient Medications Medication Instructions acyclovir (Zovirax) 400 MG tablet albuterol HFA 90 mcg/act inhaler apixaban (ELIQUIS) 5 mg, Oral, 2 times daily PHYSICAL EXAM: Knee Musculoskeletal Exam Gait Gait is normal. Inspection Leg length disparity: no discrepancy Right Erythema: none Effusion: none Edema: none Ecchymosis: none Deformity: none Alignment: normal Palpation Right Right knee palpation is unremarkable. Increased warmth: none Masses: none Tenderness: none Range of Motion Right Right knee range of motion is normal and full. Active extension: 0 Right knee passive extension: 2 degree hyperextension. Active flexion: 125 Passive flexion: 130 (tightness on end rom.) Strength Right Right knee strength is normal. Extension: 5/5. Flexion: 5/5. Instability Right Instability signs: none - stable Varus stress grade: normal Valgus stress grade: normal Anterior drawer: normal Medial Lauren test: negative Lateral Lauren test: negative Neurovascular Right Right knee neurovascular exam is normal. Pulses - PT: normal Posterior tibial: 2+ Capillary refill: warm and well-perfused Special Signs Right Right knee special signs are normal. Patellar apprehension: none General Constitutional: appears stated age Labored breathing: no Psychiatric: normal mood and affect Neurological: alert Skin: intact Lymphadenopathy: none Vitals: There is no height or weight on file to calculate BMI. Tobacco Use: Medium Risk (12/21/2023) Patient History Smoking Tobacco Use: Former Smokeless Tobacco Use: Never Passive Exposure: Not on file Alcohol Use: Not on file IMAGING: Procedures No orders of the defined types were placed in this encounter. ASSESSMENT: ICD-10-CM 1. Right anterior knee pain M25.561 PLAN: Patient doing well, states she worked her shift last night standing, doing activity reported minimal to no symptoms, does note some stiffness on terminal flexion. Patient was going to cancel today's appointment, but was rushing around in the morning and noticed a twinge and decided to keep appointment, I can not reproduce pain other than slight stiffness on terminal flexion, trace effusion. Patient functioning too well for oral steroid with risks and benefits discussed, she will continue with ice and Tylenol. She may try power step orthotics as she is dealing with plantar fascia symptoms in the left doing therapy with podiatry. We discussed not favoring her right knee during this process given her history. Patient will practice her stretches before ambulation. Patient may follow up on a p.r.n. basis. We discussed symptoms to watch for and she may call if anything worsens or new symptomsdevelop Questions answered in laymen terms at the bedside. The diagnosis, home exercise plan and any ongoing restrictions/ recommendations reviewed. If unable to be reached in office, I recommend evaluation at nearest Emergency Room if any symptoms worsened or new symptoms develop for requiring urgent evaluation. HEATH Mcneil documented in [facility] encounterSaint [facility] [id number] History of Present illness Narrative* Ila Whalen MD - 12/16/2023 2:40 PM EST Images from the original note were not included. [facility] [address] [place] [id number] Subjective: Patient ID: Kiersten Lagos is a 53 y.o. female. Chief Complaint No chief complaint on file. History of Present Illness: Kiersten Lagos is a 53 y.o. female present today for follow-up of right calf DVT. Patient has history of DVT after 17 years ago and multiple minor injury 08/12/23 diagnosed with right gastrocnemius DVT from outside hospital in the setting of longitudinalpatella fracture. She was started on apixaban 5 mg b.i.d.. She has been doing well. Her right knee has been doing well as well but about 2 weeks ago she fell on the ice and noted some right knee swelling. No ecchymosis. The swelling has somewhat improved. Deny any pain Deny bleeding complication from apixaban 10/05/2023 elevate anti thrombin 3 activity which indicate that patient is on anticoagulation Protein C protein S normal Negative prothrombin gene mutation and factor 5 Leiden mutation, negative anti phospholipid antibodies 12/04/2023 Venous insufficiency ultrasound does not show any DVT or venous reflux Current Outpatient Medications: acyclovir (ZOVIRAX) 400 mg tablet, Take 1 tablet (400 mg total) by mouth every 4 (four) hours whileawake., Disp: , Rfl: albuterol (PROVENTIL HFA;VENTOLIN HFA) 90 mcg/actuation inhaler, Inhale 2 puffs every 6 (six) hoursas needed for wheezing., Disp: , Rfl: apixaban (ELIQUIS) 5 mg tablet, Take 1 tablet (5 mg total) by mouth in the morning and 1 tablet (5 mg total) before bedtime., Disp: 60 tablet, Rfl: 0 dokccdng-ezen-OM-calcium &mins (THERAGRAN-M) 9 mg iron-400 mcg tablet, Take 1 tablet by mouth in the morning., Disp: , Rfl: The following portions of the patient's history were reviewed and updated as appropriate: allergies, current medications, past family history, past medical history, past social history, past surgicalhistory and problem list. Review of Systems: Review of Systems Constitutional: Negative for activity change, appetite change, chills, fatigue, fever and unexpected weight change. HENT: Negative for congestion, hearing loss, nosebleeds, trouble swallowing and voice change. Eyes: Negative for photophobia and visual disturbance. Respiratory: Negative for cough, chest tightness, shortness of breath and wheezing. Cardiovascular: Negative for chest pain and leg swelling. Gastrointestinal: Negative for abdominal pain, anal bleeding, blood in stool, nausea and rectal pain. Endocrine: Negative for cold intolerance, heat intolerance, polydipsia and polyuria. Genitourinary: Negative for hematuria, pelvic pain and vaginal bleeding. Skin: Negative for color change, pallor, rash and wound. Neurological: Negative for dizziness, seizures, weakness, light-headedness and numbness. Hematological: Does not bruise/bleed easily. Objective: Vitals BP 118/78 (BP Site: Right Arm, BP Postition: Sitting, BP CUFF SIZE: M (9-13 inches)) Ht 172.7 cm (5' 7.99 ) Wt 83.9 kg (185 lb) BMI 28.14 kg/m Physical Exam Physical Exam Constitutional: General: She is not in acute distress. Appearance: Normal appearance. She is not ill-appearing. HENT: Head: Normocephalic. Nose: Nose normal. Eyes: General: No scleral icterus. Right eye: No discharge. Left eye: No discharge. Conjunctiva/sclera: Conjunctivae normal. Pupils: Pupils are equal, round, and reactive to light. Cardiovascular: Rate and Rhythm: Normal rate and regular rhythm. Pulses: Normal pulses. Heart sounds: Normal heart sounds. No murmur heard. Pulmonary: Effort: Pulmonary effort is normal. No respiratory distress. Breath sounds: Normal breath sounds. No wheezing. Abdominal: Palpations: Abdomen is soft. Tenderness: There is no abdominal tenderness. There is no rebound. Musculoskeletal: General: No swelling, tenderness or deformity. Normal range of motion. Cervical back: Normal range of motion. Right lower leg: No edema. Left lower leg: No edema. Skin: General: Skin is warm and dry. Capillary Refill: Capillary refill takes less than 2 seconds. Findings: No bruising, erythema, lesion or rash. Neurological: General: No focal deficit present. Mental Status: She is alert and oriented to person, place, and time. Mental status is at baseline. Sensory: No sensory deficit. Motor: No weakness. Gait: Gait normal. Psychiatric: Mood and Affect: Mood normal. 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 Plan Plan: Kiersten Lagos is a 53 y.o. year old female with to recurrent provoked right lower extremity DVT. She has completed over 3 months of therapeutic anticoagulation with apixaban 5 mg b.i.d.. Recommend 1 more once due to right knee injury and she may stop apixaban and continue with aspirin 81 mg daily Review thrombophilia testing which are unremarkable except for elevated anti thrombin 3. This couldbe explained by being on blood thinner. For venous insufficiency ultrasound is unremarkable. She has superficial visible varicose vein behind her knee and left calf. Recommend weight loss legs elevation meticulous foot and leg skin care and the use of compression garment as well as calf muscle exercise. Patient can follow-up with me as needed Total time spent was 25 minutes: Preparing to see the patient (e.g., review of tests) Obtaining and/or reviewing separately obtained history Performing a medically appropriate examination and/or evaluation Counseling and educating the patient/family/caregiver Ordering medications, tests, or procedures This note was created with the assistance of a speech recognition program. While intending to generate a timely document that accurately reflects the content of the visit, no guarantee can be provided that every grammatical or spelling mistake has been or will be identified or corrected. Thank you for your understanding. Ila Whalen MD Staff physician, Vascular medicine 12/16/2023 4:32 PM documented in [facility] Evaluation note* Encounter Date Diagnosis Assessment Notes Treatment Notes Treatment Clinical Notes Nov, Intractable migraine without aura and without status migrainosus (ICD-10 - G43.019) Handwrote rx for tizanidine 4mg po tid prn, #15. Keep Neurology appt. Rest and increase fluids. Will watch for rest and hydration. [facility] Other 01-16-2024 Evaluation note* Encounter Date Diagnosis Assessment Notes Treatment Notes Treatment Clinical Notes Nov, Intractable migraine without aura and without status migrainosus (ICD-10 - G43.019) Extended time off work: 11/24 - 12/08 RTW on 12/09. pt agrees neurology referral - requests Dr. Hussein. [facility] Other 01-15-2024 Evaluation note* Encounter Date Diagnosis Assessment Notes Treatment Notes Treatment Clinical Notes Nov, Nausea (ICD-10 - R11.0) pt states this has resolved. Nov, Intractable migraine without aura and without status migrainosus (ICD-10 - G43.019) pt states this has improved. note given to pt to RTW on 12/02Nov, Foot pain, left (ICD-10 - M79.672) pt agrees to referral to Dr. Machado's office- xray and evaluation Nov, Hx of deep venous thrombosis (ICD-10 - Z86.718) Pt having an US later this week. States she is on xarelto, but sometimes she forgets to take her meds. [facility] Other 01-09-2024 Evaluation note* Encounter Date Diagnosis Assessment Notes Treatment Notes Treatment Clinical Notes 09 Dannie, 2024 Nausea (ICD-10 - R11.0) added zofran for symptom improvement. Nov, Intractable migraine without aura and without status migrainosus (ICD-10 - G43.019) Continue present medications. Needs 1 week off work. Reviewed FMLA paperwork requirements. Declines triptans as they were not helpful in the past. Discussed rest and fluids [facility] Other 08-21-2023 Evaluation note* Encounter Date Diagnosis Assessment Notes Treatment Notes Treatment Clinical Notes Jun, Nasal pain (ICD-10 - J34.89) Pt saw ENT. Has continued to experience w glasses. Recommended eye exam and consider contacts. Discussed planned RTW on 07/17. [facility] Other 08-14-2023 Evaluation note* Encounter Date Diagnosis Assessment Notes Treatment Notes Treatment Clinical Notes Jun, Nasal pain (ICD-10 - J34.89) Will check Xray to assess for fracture. Notes pain when wearing glasses. Will complete FMLA as discussed. Jun, Perimenopausal (ICD-10 - N95.1) Notes LMP in November. Notes hot flashes, forgetfulness, and dizziness. Followup w Dr. Rahman - call for appt. Jun, Pre-syncope (ICD-10 - R55) Denies actual syncope; will followup w [facility] for hormone concerns. [facility] Other 07-20-2023 Evaluation note* Encounter Date Diagnosis Assessment Notes Treatment Notes Treatment Clinical Notes May, Migraine aura, persistent, intractable (ICD-10 - G43.519) Notes halos and problems with lights and loud noises. Agrees to 1-2 days/episode 2x/month on the FMLA. Symptoms relieved with ibuprofen, caffiene and rest. May, Asthma (ICD-10 - J45.909) States condition is stable and excerbated w heat and humidity. May, Fibromyalgia muscle pain (ICD-10 - M79.7) Discussed chronic problem 30 years. Has seen rheumatology in the past. [facility] Other 07-20-2023 Evaluation note* Encounter Date Diagnosis Assessment Notes Treatment Notes Treatment Clinical Notes May, Migraine aura, persistent, intractable (ICD-10 - G43.519) Notes halos and problems with lights and loud noises. Agrees to 1-2 days/episode 2x/month on the FMLA. Symptoms relieved with ibuprofen, caffiene and rest. May, Asthma (ICD-10 - J45.909) States condition is stable and excerbated w heat and humidity. May, Fibromyalgia muscle pain (ICD-10 - M79.7) Discussed chronic problem 30 years. Has seen rheumatology in the past. Declines further referral to this specialty as condition is stable. Takes OTC meds and stretches to help with pain. [facility] Other 06-09-2023 Evaluation note* Encounter Date Diagnosis Assessment Notes Treatment Notes Treatment Clinical Notes Apr, Acute right ankle pain (ICD-10 - M25.571) Xray ordered, recommend wearing supportive shoe with good orthotic at work especially as she walks alot on concrete. Apr, Intrinsic eczema (ICD-10 - L20.84) Prescription cream sent in Use moisturizer and prevent secondary infection [facility] Other Evaluation noteNo InformationNort [employer] Other Evaluation note* Diagnosis Acute deep vein thrombosis (DVT) of right lower extremity, unspecified vein (CMS-HCC)- Primary Recurrent acute deep vein thrombosis (DVT) of both lower extremities (CMS-HCC) [facility] Right anterior knee pain- Primary [facility] Diagnosis Onset Date Resolution Status Family history of colon cancer acute Screening for colon cancer a cute Screening mammogram for breast cancer acute Wellness examination acute [facility] Work Phone: History general Narrative - Reported* Type Description Date Medical History Hx of DVT following /ri ght leg Medical History Cervical lymphadenopathy Medical History Febrile illness, acute Medical History Epicondylitis, lateral, left Medical History Vagina, candidiasis Medical History Lymphadenitis Medical History Personal history of COVID-19 Medical History Asthma Medical History Fibromyalgia muscle pain Medical History Dyspnea Medical History Allergic bronchitis, mild persis tent, uncomplicated Surgical History C section Hospitalization History See Above Enpirion Other InstructionsNot on filedocumented in this encounter [facility] Summary Purpose Family History No Family History Records Found Relationship Condition Age at Onset Recorded Date/T alvin father Malignant neoplasm Unknown Unknown Relationship Condition Age at Onset Recorded Date/T alvin father Unknown Malignant neoplasm Unknown Colorectal cancer Unknown Asthma Unknown Not Specified Asthma Unknown Advance Directives No Advanced Directives Records Found Advance Directive Response Recorded Date/ Time Advance Directives No October 7:03pm Reason for Referral Reason Migraines - increasi ng frequency and severity Diagnosis 1 Intractable migraine without aura and without status migrainosus (G43.019) Referral Organization [facility] Referring Provider First Name Nicolle Referring Provider Last Name Austyn Referring Provider Specialty [facility] Referred Organization [facility] Referred Provider Parvez Hussein Referred Address [address] [place], [place],[address] Referred Provider Specialty Neurology Referral Priority Routine Reason L foot pain on medial heel after she had R leg (patella) fracture, hx of hairline fractures Diagnosis 1 Foot pain, left (M79 .672) Referral Organization [facility] Referring Provider First Name Nicolle Referring Provider Last Name Austyn Referring Provider Specialty [facility] Referred Organization [facility] Referred Provider Brady Machado Referred Address [address], [place],[address] Referred Provider Specialty Podiatry - S urgical Chiropody Referral Priority Routine General Notes Ronna Hutchinson 11:00:40 AM >received today, attachments made, waiting for notes to be locked Chief Complaint and Reason for Visit Chief Complaint 1 Week Follow Up Migraine More Time Off Work-Migraines Wellness Screening Reason for Visit Family history of co dirk cancer Screening for colon cancer Screening mammogram for breast cancer Wellness examination Chief Complaint Wellness Screening Screening Screening Reason for Visit Family history of co dirk cancer Screening for colon cancer Screening mammogram for breast cancer Wellness examination Additional Source Comments INFORMATION SOURCE (unrecogn ized section and content) DATE CREATED AUTHOR 03/15/2022 [facility] DATE CREATED AUTHOR AUTHOR'S ORGANIZ ATION 12/06/2023 [facility] DATE CREATED AUTHOR AUTHOR'S ORGANIZ ATION 12/20/2023 [facility] DATE CREATED AUTHOR AUTHOR'S ORGANIZ ATION 12/21/2023 [facility] EPIC DATE CREATED AUTHOR AUTHOR'S ORGANIZ ATION 04/24/2024 [facility] REASON FOR VISIT (unrecogniz ed section and content) Reason Comments Pain Care Teams (unrecognized sec tion and content) Safety And Health Manager Relationship Specialty Start Date End Date Nicolle Zaman MD [address] [place] [address] PCP - General Family Medicine 10/05/23 Safety And Health Manager Relationship Specialty Start Date End Date Nicolle Zaman MD [address] [place] [id number] PCP - General Family Medicine 07/03/23 Team Status: Active Member Role Status Dates Nicolle Zaman MD Primary Care Provider Active Team Status: Inactive Member Role Status Dates Nicolle Zaman MD Attending Provider Active St art: November 30, 2023 End: November 30, 2023 Team Status: Inactive Member Role Status Dates Nicolle Zaman MD Attending Provider Active St art: December 01, 2023 End: December 01, 2023 Team Status: Inactive Member Role Status Dates Nicolle Zaman MD Attending Provider Active St art: December 11, 2023 End: December 11, 2023 Team Status: Inactive Member Role Status Dates Nicolle Zaman MD Primary Care Provide r, Attending Provider Active Start: February 23, 2024 End: February 23, 2024 Team Status: Inactive Member Role Status Dates Nicolle Zaman MD Primary Care Provide r, Attending Provider Active Start: February 24, 2024 End: February 24, 2024 Team Status: Inactive Member Role Status Dates Nicolle Zaman MD Primary Care Provider Active Start: April 21, 2024 End: April 21, 2024 Ching Augustine DO Attending Provider Active St art: April 21, 2024 End: April 21, 2024 Team Status: Active Member Role Status Dates Nicolle Zaman MD Primary Care Provider Active Start: April 21, 2024 Ching Augustine DO Attending Provider, Other Provider Active Start: April 21, 2024 Goals (unrecognized section and content) Goals may be documented in a n alternate section FOR RECORDS PERTAINING TO PATIENTS WHO ARE OR HAVE BEEN ENROLLED IN A CHEMICAL DEPENDENCY/SUBSTANCEABUSE PROGRAM, SOME INFORMATION MAY BE OMITTED. This clinical summary was aggregated from multiple sources. Caution should be exercised in using it in the provision of clinical care. This summary normalizes information from multiple sources, and as a consequence, information in this document may materially change the coding, format and clinical context of patient data. In addition, data may be omitted in some cases. CLINICAL DECISIONS SHOULD BE BASED ON THE PRIMARY CLINICAL RECORDS. [facility] [email or web address] [facility]. provides no warranty or guarantee of the accuracy or completeness of information in this document.
[2024-04-25 12:53] VITALS: BP 136/72; PULSE 83; TEMP 37; O2SAT 98; BMI 27.8
--- NOTE | 2024-04-25 16:48 | XR_ITS ---
The [address] [address] Patient Name: AMISH YANEZ MRN: [id number] date: 1970 Sex: F Assigned Patient Location: ER Current Patient Location: ED.MAIN Accession/Order Number: [id number] Exam Date: 04/25/2024 17:15 Report Date: 04/25/2024 18:50 At the request of: LEXIS ARITA Procedure: XR acute abdomen series EXAM: XR acute abdomen series , 04/25/2024 HISTORY: abd pain, s/p colonscopy COMPARISON: None. TECHNIQUE: Supine and upright x-rays of the abdomen and pelvis including frontal view of the chest. FINDINGS: No dilated bowel loops, air-fluid levels or free air under the diaphragm seen. Moderate stool throughout the colon. No abnormal soft tissue swelling or calcification. Mild levoscoliosis of the lumbar spine. Cardiac silhouette within normal limits. No hilar or mediastinal enlargement. The lungs and costophrenic angles are clear. No acute osseous findings. XR/XR acute abdomen series IMPRESSION: No evidence of bowel obstruction or perforation. Clear lungs. Electronically authenticated by: JAZMYNE VEGA Date: 04/25/2024 18:50
[2024-04-25] MEDS: 0.9 % SODIUM CHLORIDE 1,000 ML 1000 ML IV (17:12)
[2024-04-25] MEDS: KETOROLAC TROMETHAMINE 30 MG/ML VIAL 15 MG IVP (17:12)
--- NOTE | 2024-04-25 18:11 | ED.GENADUL1 ---
HPI HPI - General Adult General Chief complaint: Headache Stated complaint: ABDOMEN PAIN/HEADACHE Time Seen by Provider: 04/25/24 16:20 Source: patient Mode of arrival: walk-in History of Present Illness HPI narrative: Patient is a 54-year-old female who has had headache and upper abdominal quadrant discomfort since yesterday. Patient had a colonoscopy on where she had 5 polyps removed. 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 Patient has not been Eating any significant meatsSince the colonoscopy.Patient feels like she is having pain/pressure underneath her diaphragm bilateral.Patient denies any rectal pressure. No bowel or bladder changes. No chest pain or shortness of breath. Patient has chronic bilateral muscle skeletal neck pain. No other acute complaints at this time. Patient rates her burning sensation to her headache 4/10.Patient has a history of headaches and migraines, patient says that she has only had burning headaches like this a few times in the past. The bumps in the road did not hurt patient on the way here All systems are negative except as noted/marked. All systems reviewed and otherwise negative. Nurses note and vital signs reviewed and patient is not hypoxic. General: The patient appears well and in no apparent distress. Patient is resting comfortably on cart. Patient is not toxic, lethargic, or listless Skin: Warm, dry, no pallor noted. There is no rash noted. No petechiae, purpura. Head: Normocephalic, atraumatic; No tenderness to palpation to bilateral frontal and maxillary sinus. Patient has no midline or paracervical tenderness to palpation. Full range of motion of cervical spine with no difficulty. Eye: Normal conjunctiva, no drainage, EOMI. PERRL Ears, Nose, Mouth, and Throat: oral mucosa is moist. Nares patent. Mouth without vesicles. Cardiovascular: Regular Rate and Rhythm, no murmur, gallop, rub Respiratory: Patient is in no distress, no accessory muscle use, lungs are clear to auscultation, no wheezing, rales or rhonchi Back: non-tender, no CVA tenderness bilaterally to percussion. No CT LS midline pain GI: Patient has mild tenderness to palpation to the left and right upper quadrant, Mild midepigastric tenderness to palpation. No peritoneal signs.No right or left lower quadrant tenderness palpation, no suprapubic tenderness palpation, no peritoneal signs no tenderness to palpation, no masses appreciated. No rebound, guarding, or rigidity noted. No distention Musculoskeletal: Patient has full range of motion of all of the extremities, no motor, sensory, or focal neurological deficits Neurological: A&O x4, normal speech Psychiatric: Cooperative Related Data Previous Rx's ?Medication ?Instructions ?Recorded dicyclomine 20 mg tablet 20 mg PO TID PRN abdominal pain #7 04/25/24 tabs ondansetron 4 mg disintegrating 4 mg PO Q4H PRN nausea and 04/25/24 tablet vomiting 3 days #6 tabs Allergies Allergy/AdvReac Type Severity Reaction Status Date / Time azithromycin [From Zithromax] Allergy Severe Verified 04/25/24 12:58 celecoxib [From Celebrex] Allergy Severe Verified 04/25/24 12:58 cephalexin [From Keflex] Allergy Severe Verified 04/25/24 12:58 erythromycin base Allergy Severe Verified 04/25/24 12:58 Penicillins Allergy Severe Verified 04/25/24 12:58 Tetanus Vaccines and Toxoid Allergy Severe Verified 04/25/24 12:58 Opioid HPI Opioid Management Most Recent Opioid Data: Last Pain Scale 5 04/25/24 17:12 Last MAR Pain Assessment 04/25/24 17:12 Exam Constitutional Vital Signs, click to edit/add: Last Vital Signs Temp 98.6 F 04/25/24 12:53 Pulse 58 L 04/25/24 18:32 Resp 17 04/25/24 18:32 BP 126/82 04/25/24 18:32 Pulse Ox 98 04/25/24 18:32 O2 Del Method Room Air 04/25/24 18:32 Course Vital Signs Vital signs: Vital Signs Temperature 98.6 F 04/25/24 12:53 Pulse Rate 83 04/25/24 12:53 Respiratory Rate 16 04/25/24 12:53 Blood Pressure 136/72 04/25/24 12:53 Pulse Oximetry 98 04/25/24 12:53 Oxygen Delivery Method Room Air 04/25/24 12:53 Temperature 98.6 F 04/25/24 12:53 Pulse Rate 58 L 04/25/24 18:32 Respiratory Rate 17 04/25/24 18:32 Blood Pressure 126/82 04/25/24 18:32 Pulse Oximetry 98 04/25/24 18:32 Oxygen Delivery Method Room Air 04/25/24 18:32 Medical Decision Making MDM Narrative Medical decision making narrative: Patient x-ray shows no perforation. Patient has a moderate amount of stool In her abdomen. Patient was educated on continuing MiraLAX and magnesium citrateTo help with stool relief. Patient was given IV Toradol, she refused IV Norflex. Patient daughter is driving home.Patient's headache has completely resolved. Patient will follow-up with PCP. No questions at discharge Patient will continue and increase clear diet. Imaging Data CT scan - pelvis: Radiologist's impression: ITS Impressions Chest/Abdomen X-ray 04/25/24 16:48 IMPRESSION: No evidence of bowel obstruction or perforation. Clear lungs. Electronically authenticated by: JAZMYNE VEGA Date: 04/25/2024 18:50 Discharge Plan Discharge Stand Alone Forms: Portal Instructions Chief Complaint: Headache Clinical Impression: Headache, Abdominal pain, Constipation Patient Disposition: Home, Self-Care Time of Disposition Decision: 18:06 Condition: Good Prescriptions / Home Meds: New ondansetron 4 mg tablet,disintegrating 4 mg PO Q4H PRN (Reason: nausea and vomiting) 3 Days Qty: 6 0RF dicyclomine 20 mg tablet 20 mg PO TID PRN (Reason: abdominal pain) Qty: 7 0RF Print Language: Tajik Instructions: Constipation (ED), Abdominal Pain (ED), General Headache (ED) Referrals: Nicolle Mckenna MD [Primary Care Provider] - 1 week Discharge Date/Time: 04/25/24 18:34
[2024-04-25 18:32] VITALS: BP 126/82; PULSE 58; O2SAT 98
== END 2024-04-25 18:34 | disposition home or self-care (01) ==
PROVIDERS: Emergency Provider Emergency Medicine; PCP Family Medicine
DX: R51.9 Headache, unspecified (principal); R10.10 Upper abdominal pain, unspecified; K59.00 Constipation, unspecified; Z98.890 Other specified postprocedural states; Z86.718 Personal history of other venous thrombosis and embolism
CPT/HCPCS: 74022; 96374; 99284; J1885

== ENCOUNTER 2024-09-19 12:45 | Outpatient (OUT) | payer OTHER, SELFPAY ==
--- NOTE | 2024-09-19 12:59 | XR_ITS ---
The [address] [address] Patient Name: AMISH YANEZ MRN: [id number] date: 1970 Sex: F Assigned Patient Location: LAB Current Patient Location: LAB Accession/Order Number: [id number] Exam Date: 09/19/2024 13:09 Report Date: 09/19/2024 14:18 At the request of: MYRA ZAMAN Procedure: XR chest 2V PROCEDURE: XR chest 2V DATE: 09/19/2024 1:09 PM EST COMPARISONS: 04/25/2024 CLINICAL INDICATION: 54 years Female Dyspnea, Asthma, Edema Of Extremities FINDINGS: The cardiomediastinal silhouette and pulmonary vasculature are within normal limits. The lungs are clear. There is no evidence of pleural effusion or pneumothorax. XR/XR chest 2V IMPRESSION: Chest radiograph is within normal limits. Electronically authenticated by: LIDIA SEGOVIA Date: 09/19/2024 14:18
[2024-09-19 13:12] LABS: Basophils Percent Auto 0.5 % (0.2-2.0); Eosinophils Percent Auto 0.7 % (0.9-7.0); Hematocrit 38.3 % (36.0-48.0); Hemoglobin 12.4 g/dL (12.0-16.0); Immature Granulocytes Abs Auto 0.01 10^3/uL (0.00-0.03); Immature Granulocytes Pct Auto 0.2 % (0.0-0.5); Lymphocytes Absolute Auto 1.8 10^3/uL (1.2-3.8); Lymphocytes Percent Auto 29.6 % (20.5-60.0); Mean Corpuscular HGB Conc 32.4 g/dL (29.9-35.2); Mean Corpuscular Hemoglobin 30.4 pg (26.7-34.0); Mean Corpuscular Volume 93.9 fL (81.0-99.0); Mean Platelet Volume 10.5 fL (9.5-13.5); Monocytes Absolute Auto 0.3 10^3/uL (0.3-0.8); Monocytes Percent Auto 5.7 % (1.7-12.0); Neutrophils Absolute Auto 3.8 10^3/uL (1.4-6.5); Neutrophils Percent Auto 63.3 % (43.0-75.0); Platelet Count 211 10^3/uL (150-450); Red Blood Count 4.08 10^6/uL (4.20-5.40); Red Cell Distribution Width 12.6 % (11.0-15.0); White Blood Count 5.9 10^3/uL (4.0-11.0)
[2024-09-19 13:44] LABS: Anion Gap 13.3; BUN Creatinine Ratio 25.5; Calcium 9.6 mg/dL (8.5-10.1); Carbon Dioxide 28.2 mmol/L (21.0-32.0); Chloride 107 mmol/L (98-107); Estimated GFR (African America >60 (>=60 mL/min/1.73m^2); Estimated GFR (Non-African Ame >60 (>=60 mL/min/1.73m^2); Glucose 87 mg/dL (74-106); Potassium 4.5 mmol/L (3.5-5.1); Sodium 144 mmol/L (136-145)
== END 2024-09-19 12:46 | disposition home or self-care (01) ==
LOC: LAB 12:48
PROVIDERS: PCP Family Medicine; Visit Provider Family Medicine
DX: R06.00 Dyspnea, unspecified (principal); J45.909 Unspecified asthma, uncomplicated; R60.0 Localized edema
CPT/HCPCS: 36415; 71046; 80048; 85025

== ENCOUNTER 2024-09-20 13:38 | Outpatient (OUT) | payer OTHER, SELFPAY ==
--- NOTE | 2024-09-20 | ECG_ITS ---
The [facility] Test Date: 2024-09-20 Pat Name: AMISH YANEZ Department: Room: - Gender: Female [employer] Dean: : 1970 Requested By: MYRA ZAAMN Order Number: [id number] [place] MD: MAMIE GHOSH Measurements Intervals [place] Rate: 77 P: 66 KS: 159 QRS: 83 QRSD: 98 T: 60 QT: 381 QTc: 433 Interpretive Statements SINUS RHYTHM No previous ECG available for comparison Electronically Signed On 09-20-2024 15:46:00 EST by MAMIE GHOSH
== END 2024-09-20 13:39 | disposition home or self-care (01) ==
LOC: CARD 13:38
PROVIDERS: PCP Family Medicine; Visit Provider Family Medicine
DX: R60.0 Localized edema (principal)
CPT/HCPCS: 93005

== ENCOUNTER 2025-05-01 11:40 | Outpatient (OUT) | payer OTHER, SELFPAY | END 2025-05-01 11:41 | disposition home or self-care (01) | PROVIDERS: PCP Family Medicine; Visit Provider Family Medicine | DX: R60.0 Localized edema (principal) | CPT/HCPCS: 93971 ==